=== PATIENT | male | born 1995 | race Caucasian/White ===

== ENCOUNTER 2017-10-23 15:16 | Emergency (ER) | payer SELFPAY ==
[~2017-10-23] VITALS: Ht 185.4 cm; Wt 80.0 kg
[2017-10-23 15:18] VITALS: BP 144/84; PULSE 83; RESP 14; TEMP 97.7; O2SAT 99
--- NOTE | 2017-10-23 16:29 | PD ---
HPI Chief Complaint: Injury Time Seen by Provider: 16:12 Travel History International Travel<30 days: No Contact w/Intl Traveler<30days: No Traveled to known affect area: No History of Present Illness HPI 22 year old male presents to the emergency department for evaluation of left wrist drop that started 2 days ago. Patient states that he slept with his left arm behind him. When he woke, he had left wrist drop and decreased movement of all digits of the left hand. He went to [facility] of 2 days ago for evaluation. He was diagnosed with a radial nerve pulse the and given a Velcro wrist splint. He states he was told to follow-up with an orthopedist. He denies any other symptoms or complaints. No other weakness. No injury. He has no chronic medical problems and takes no prescribed medications. Moderate severity. [facility] Social History Alcohol Use: No Tobacco Use: No Substance Use: No Physical Exam Narrative GENERAL: Well-nourished, well-developed male patient, afebrile. SKIN: Focused skin assessment warm/dry. HEAD: Normocephalic. Atraumatic. EYES: No scleral icterus. No injection or drainage. NECK: Supple, trachea midline. No JVD or lymphadenopathy. CARDIOVASCULAR: Regular rate and rhythm without murmurs, gallops, or rubs. Bilateral radial pulses 2+. RESPIRATORY: Breath sounds equal bilaterally. No accessory muscle use. Lungs sounds are clear to auscultation. GASTROINTESTINAL: Abdomen soft, non-tender, nondistended. MUSCULOSKELETAL: No cyanosis, or edema. Patient has left wrist drop with reduced range of motion of all fingers. All other bilateral upper and lower extremity strength is 5/5. BACK: Nontender without obvious deformity. No CVA tenderness. NEUROLOGICAL: Awake and alert. Cranial nerves II through XII intact. Motor and sensory grossly within normal limits. Five out of 5 muscle strength in all muscle groups. Normal speech. Data Data Last Documented VS Vital Signs Date Time Temp Pulse Resp B/P (MAP) Pulse Ox O2 Delivery O2 Flow Rate FiO2 10/23/17 15:18 97.7 83 14 144/84 (104) 99 Orders Orders Mandatory Outpatient Referral (10/23/17 16:21) [facility] Medical Decision Making Medical Screen Exam Complete: Yes Emergency Medical Condition: Yes Medical Record Reviewed: Yes Differential Diagnosis Radial nerve palsy versus wrist to drop versus cervical radiculopathy Narrative Course 22-year-old male presents to the emergency Department are a diagnosed with radial nerve palsy 2 days ago at [facility]. The patient states he was told to follow orthopedist that has been unable to. I discussed the case with my attending physician, Dr. Lopez, who agrees that the patient needs to follow up with neurologist. She agrees that there is no emergent intervention at this time. Patient continued to wear wrist splint and follow up with neurologist. A mandatory referral was placed. The patient was discharged in stable condition with instructions, including return instructions and follow up instructions. Diagnosis Primary Impression: Radial nerve palsy Qualified Codes: G56.32 - Lesion of radial nerve, left upper limb Referrals: Neurosurgeon call for appointment Patient Instructions: General Instructions, Radial Nerve Palsy (ED) Additional Instructions: Continue to wear wrist splint. Follow up with neurologist. A mandatory referral was placed. Return to the emergency department for any acute worsening of symptoms. Med/Other Pt SpecificInfo: No Change to Meds Disposition: 01 DISCHARGE HOME Condition: Stable Estelle Renee Oct 23, 2017 16:29
== END 2017-10-23 16:42 | disposition home or self-care (01) ==
LOC: NEPK 15:16
DX: G56.32 Lesion of radial nerve, left upper limb (principal)
CPT/HCPCS: 99281